=== PATIENT | male | born 1990 | race Caucasian/White ===

== ENCOUNTER 2017-05-15 15:40 | Emergency (ER) | payer OTHER ==
[~2017-05-15] VITALS: Ht 177.8 cm; Wt 88.5 kg
[2017-05-15 16:22] VITALS: BP 165/77
--- NOTE | 2017-05-15 16:26 | NUR ---
PARUL WRAP APPLIED TO L KNEE
== END 2017-05-15 16:44 | disposition home or self-care (01) ==
LOC: ER 15:42
DX: M25.862 Other specified joint disorders, left knee (principal)
CPT/HCPCS: 99282; A4606; Z7610